=== PATIENT | male | born 1955 | race Caucasian/White ===

== ENCOUNTER 2019-03-21 17:40 | Inpatient (IN) | payer OTHER ==
[~2019-03-21] VITALS: Ht 176.5 cm; Wt 94.0 kg
[2019-03-21 17:44] VITALS: Ht 176.5 cm; Wt 94.0 kg
[2019-03-21 18:41] LABS: PLATELET COUNT 272 x10^3mcL (130-400)
[2019-03-21 19:07] LABS: BILIRUBIN TOTAL 0.73 mg/dL (0.20-1.00); CALCIUM 8.6 mg/dL (8.5-10.1); CARBON DIOXIDE 19.1 mmol/L (21-32); POTASSIUM SERUM 4.5 mmol/L (3.5-5.1); TOTAL PROTEIN, SERUM 7.6 g/dL (6.4-8.2)
[2019-03-21 19:08] LABS: ALBUMIN 2.9 g/dL (3.4-5.0)
[2019-03-21 19:11] LABS: BAND NEUTROPHIL 2 % (0-10); METAMYELOCTE 2 % (0-2); MONOCYTE 5 % (0-7); SEGMENTED NEUTROPHILS 86 % (37-75)
[2019-03-21 19:14] LABS: PLATELET MORPHOLOGY PLATELETS NORMAL; ovalocyte/elliptocyte 1+; rbc morphology (normal/abnorm) ABNORMAL (NORMAL)
[2019-03-21 22:05] LABS: microscopic required? YES; urine erythrocyte 3+ (NEGATIVE)
[2019-03-22 01:22] VITALS: BP 151/86
[2019-03-22 02:30] LABS: MAGNESIUM 2.4 mg/dL (1.8-2.4); PHOSPHOROUS 6.6 mg/dL (2.5-4.9)
[2019-03-22 06:15] VITALS: BP 124/71
[2019-03-22 06:18] LABS: CARBON DIOXIDE 23.5 mmol/L (21-32); MAGNESIUM 2.2 mg/dL (1.8-2.4); PHOSPHOROUS 4.4 mg/dL (2.5-4.9); POTASSIUM SERUM 4.1 mmol/L (3.5-5.1)
[2019-03-22 06:20] LABS: BASOPHIL % 0.1 % (0-2); PLATELET COUNT 227 x10^3mcL (130-400)
[2019-03-22 06:29] LABS: CREATININE SERUM 4.3 mg/dL (0.7-1.3)
[2019-03-22 06:34] LABS: RED CELL DISTRIBUTION WIDTH 16.7 % (11.5-14.5)
[2019-03-22 09:04] VITALS: BP 144/78
[2019-03-22 16:03] VITALS: BP 146/86
[2019-03-22 20:37] VITALS: BP 150/83
[2019-03-23 05:52] VITALS: BP 139/95
[2019-03-23 06:36] LABS: CALCIUM 7.8 mg/dL (8.5-10.1); CARBON DIOXIDE 24.9 mmol/L (21-32); CHLORIDE SERUM 113 mmol/L (98-107); CREATININE SERUM 1.1 mg/dL (0.7-1.3); GFR1 > 60 mL/min; GLUCOSE SERUM 91 mg/dL (74-106); POTASSIUM SERUM 4.2 mmol/L (3.5-5.1); SODIUM SERUM 146 mmol/L (136-145)
[2019-03-23 06:44] LABS: BASOPHIL % 0.4 % (0-2); PLATELET COUNT 232 x10^3mcL (130-400)
[2019-03-23 08:06] LABS: RED CELL DISTRIBUTION WIDTH 17.2 % (11.5-14.5)
[2019-03-23 08:54] VITALS: BP 132/66
[2019-03-23 16:51] VITALS: BP 153/79
[2019-03-23 20:46] VITALS: BP 146/86
[2019-03-24 05:40] VITALS: BP 154/80
[2019-03-24 06:36] LABS: CALCIUM 8.3 mg/dL (8.5-10.1); CARBON DIOXIDE 28.3 mmol/L (21-32); CHLORIDE SERUM 108 mmol/L (98-107); CREATININE SERUM 1.2 mg/dL (0.7-1.3); GFR1 > 60 mL/min; GLUCOSE SERUM 100 mg/dL (74-106); POTASSIUM SERUM 3.8 mmol/L (3.5-5.1); SODIUM SERUM 144 mmol/L (136-145)
[2019-03-24 08:44] VITALS: BP 136/86
[2019-03-24] MEDS ORDERED: LEVOFLOXACIN500 M1 PO (10:04)
[2019-03-24] MEDS ORDERED: FLO4 PO (10:07)
[2019-03-24] MEDS ORDERED: NOR5 PO (10:07)
[2019-03-24 15:01] VITALS: BP 128/84
== END 2019-03-24 17:25 | disposition home health service (06) | DRG 725 ==
LOC: ED 17:40 → MU 23:43
PROVIDERS: Emergency Medicine; ADMIT Internal Medicine
DX: N40.1 Benign prostatic hyperplasia with lower urinary tract symptoms (principal); N17.0 Acute kidney failure with tubular necrosis; E87.1 Hypo-osmolality and hyponatremia; N39.0 Urinary tract infection, site not specified; R33.8 Other retention of urine; E86.0 Dehydration; K44.9 Diaphragmatic hernia without obstruction or gangrene; I10 Essential (primary) hypertension; R74.0 Nonspecific elevation of levels of transaminase and lactic acid dehydrogenase [LDH]; Z83.3 Family history of diabetes mellitus; Z80.42 Family history of malignant neoplasm of prostate
CPT/HCPCS: 90658; G0378; J0696; J1885; J2765; J3010; J7030; Q0092

== ENCOUNTER 2019-03-28 12:28 | Emergency (ER) | payer SELFPAY ==
[~2019-03-28] VITALS: Ht 175.3 cm; Wt 94.3 kg
[~2019-03-28 12:28] MED LIST: FLO4 PO; LEVOFLOXACIN500 M1 PO; NOR5 PO
[2019-03-28 12:34] VITALS: Ht 175.3 cm; Wt 94.3 kg
[2019-03-28 13:31] VITALS: BP 142/81
== END 2019-03-28 13:31 | disposition home or self-care (01) ==
LOC: ED 12:28
DX: R33.9 Retention of urine, unspecified (principal); Z46.6 Encounter for fitting and adjustment of urinary device

== ENCOUNTER 2019-05-14 12:18 | Emergency (ER) | payer SELFPAY ==
[~2019-05-14] VITALS: Ht 175.3 cm; Wt 102.1 kg
[2019-05-14 12:30] VITALS: Ht 175.3 cm; Wt 102.1 kg
[2019-05-14 13:56] VITALS: BP 173/99
== END 2019-05-14 13:56 | disposition home or self-care (01) ==
LOC: ED 12:18
DX: Z46.6 Encounter for fitting and adjustment of urinary device (principal)
CPT/HCPCS: J1885

== ENCOUNTER 2019-07-02 20:41 | Emergency (ER) | payer SELFPAY ==
[~2019-07-02] VITALS: Ht 175.3 cm; Wt 98.9 kg
[2019-07-02 21:00] VITALS: Ht 175.3 cm; Wt 98.9 kg
[2019-07-02 22:37] VITALS: BP 162/89
== END 2019-07-02 22:38 | disposition home or self-care (01) ==
LOC: ED 20:41
DX: R33.9 Retention of urine, unspecified (principal)

== ENCOUNTER 2019-10-13 05:07 | Emergency (ER) | payer SELFPAY ==
[~2019-10-13] VITALS: Ht 175.3 cm; Wt 93.9 kg
[2019-10-13 05:16] VITALS: Ht 175.3 cm; Wt 93.9 kg
[2019-10-13 07:17] VITALS: BP 149/86
== END 2019-10-13 07:17 | disposition home or self-care (01) ==
LOC: ED 05:07
DX: N40.0 Benign prostatic hyperplasia without lower urinary tract symptoms (principal); F17.210 Nicotine dependence, cigarettes, uncomplicated

== ENCOUNTER 2019-11-10 02:07 | Emergency (ER) | payer OTHER ==
[~2019-11-10] VITALS: Ht 175.3 cm; Wt 92.5 kg
[2019-11-10 02:22] VITALS: Ht 175.3 cm; Wt 92.5 kg
[2019-11-10 03:51] LABS: UA SPECIFIC GRAVITY >=1.030 (1.005-1.035); microscopic required? YES; urine erythrocyte 3+ (NEGATIVE)
[2019-11-10 04:02] VITALS: BP 111/82
== END 2019-11-10 04:02 | disposition home or self-care (01) ==
LOC: ED 02:07
PROVIDERS: Emergency Medicine
DX: N39.0 Urinary tract infection, site not specified (principal); T83.098A Other mechanical complication of other urinary catheter, initial encounter
CPT/HCPCS: J0696; J1885

== ENCOUNTER 2019-11-21 11:15 | Emergency (ER) | payer OTHER ==
[~2019-11-21] VITALS: Ht 175.3 cm; Wt 89.4 kg
[2019-11-21 11:26] VITALS: Ht 175.3 cm; Wt 89.4 kg
[2019-11-21 12:30] VITALS: BP 145/92
== END 2019-11-21 12:30 | disposition home or self-care (01) ==
LOC: ED 11:15
DX: N39.0 Urinary tract infection, site not specified (principal); Z46.6 Encounter for fitting and adjustment of urinary device

== ENCOUNTER 2020-03-19 13:34 | Emergency (ER) | payer OTHER ==
[~2020-03-19] VITALS: Ht 175.3 cm; Wt 91.2 kg
[2020-03-19 15:28] VITALS: Ht 175.3 cm; Wt 91.2 kg
[2020-03-19 17:13] LABS: UA SPECIFIC GRAVITY >=1.030 (1.005-1.035); microscopic required? YES; urine erythrocyte 3+ (NEGATIVE)
[2020-03-19 18:31] VITALS: BP 137/73
== END 2020-03-19 18:31 | disposition home or self-care (01) ==
LOC: ED 13:34
PROVIDERS: Emergency Medicine
DX: N39.0 Urinary tract infection, site not specified (principal); N40.1 Benign prostatic hyperplasia with lower urinary tract symptoms
CPT/HCPCS: J0696; J1885

== ENCOUNTER 2020-06-12 01:14 | Emergency (ER) | payer OTHER ==
[~2020-06-12] VITALS: Ht 175.3 cm; Wt 94.5 kg
[2020-06-12 01:21] VITALS: Ht 175.3 cm; Wt 94.5 kg
[2020-06-12 03:24] VITALS: BP 145/81
== END 2020-06-12 03:24 | disposition home or self-care (01) ==
LOC: ED 01:14
DX: N39.0 Urinary tract infection, site not specified (principal); I10 Essential (primary) hypertension